=== PATIENT | female | born 1995 | race Caucasian/White ===

== ENCOUNTER 2020-05-24 17:45 | Emergency (ER) | payer OTHER ==
[2020-05-24] MEDS ORDERED: LIDOCAINE 1% MPF 2 ML AMPULE ONE (23:02)
[2020-05-24] MEDS ORDERED: metroNIDAZOLE 500 MG TABLET ONE (23:02)
[2020-05-24] MEDS ORDERED: CEFTRIAXONE 500 MG/VIAL ONE (23:03)
[2020-05-24] MEDS ORDERED: AZITHROMYCIN 250 MG TAB ONE (23:03)
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
[2020-05-25 01:15] VITALS: TEMP 98
[2020-05-25 01:16] VITALS: BP 127/71; O2SAT 100
== END 2020-05-24 23:25 | disposition home or self-care (01) ==
LOC: ER 17:45
DX: Z04.41 Encounter for examination and observation following alleged adult rape (principal)
CPT/HCPCS: 96372; 99283; J0696